=== PATIENT | male | born 1980 ===

== ENCOUNTER 2018-10-21 07:08 | Day surgery (SDC) | payer MEDICAID ==
[2018-10-13 09:25] VITALS: BMI 32.2
[~2018-10-21 07:08] MED LIST: EPINEPHrine 1:1000 Nasal Sol(30mL) ONE; Lidocaine/Epinephrine 1% 1:100000 10 ML IJ ONE; ceFAZolin IV 1 gm in Dextrose 2 GM/100 ML BAG IVPB ONE
[2018-10-21] MEDS ORDERED: Acetaminophen-Codeine 300/30 mg Tab PO PRN (09:19)
[2018-10-21] MEDS ORDERED: Dextrose 5%/0.45% NS 1,000 ML IV SCH (09:30)
[2018-10-21] MEDS ORDERED: Rocuronium 10 mg/ml (5 ml) ONE (09:38)
[2018-10-21] MEDS ORDERED: Succinylcholine Chloride 20 mg/ml Syr (5 ml) IV ONE (09:38)
[2018-10-21] MEDS ORDERED: Propofol 10 mg/ml Inj (20 ML) ONE ×4 (09:38→11:06)
[2018-10-21] MEDS ORDERED: Labetalol 25mg/5ml Syringe ONE (10:41)
[2018-10-21] MEDS ORDERED: Naloxone 0.4 mg/ml Inj (Adult) ONE (10:56)
[2018-10-21] MEDS ORDERED: HYDROmorphone 0.5 mg/0.5 ml ISec IVP PRN (11:30)
[2018-10-21] MEDS ORDERED: Dexamethasone 4 mg/1 ml IVP PRN (11:37)
[2018-10-21] MEDS ORDERED: HYDROmorphone 0.5 mg/0.5 ml ISec ONE (11:41)
[2018-10-21 12:57] VITALS: BP 118/70; PULSE 78; RESP 18; TEMP 98; O2SAT 100
--- NOTE | 2018-10-21 17:39 | OP ---
PROCEDURE DATE: 10/21/2018 PREOPERATIVE DIAGNOSES: Deviated septum, large turbinates. POSTOPERATIVE DIAGNOSES: Deviated septum, large turbinates. PROCEDURES: Septoplasty, endoscopic bilateral inferior turbinate reduction. SIGNIFICANT FINDINGS: Deviated septum, large turbinates. DESCRIPTION OF PROCEDURE: The patient was brought into room, placed in supine position. Anesthesia was initiated through an ET tube. The patient was draped in usual manner. Adrenaline-soaked pledgets were inserted into nasal cavity that remained there for five minutes and removed. The septum was injected with lidocaine with epinephrine on both sides. incision was made on the left and mucoperichondrial flap was raised. A vertical incision was made in the cartilage leaving a 1.5 cm anterior and superior strut and mucoperichondrial flap was raised on the other side. Deviated portion of the bone and cartilage were removed using forceps and chisel. Quilting suture was used to suture the two flaps together and close the [place] incision. The 0-degree scope was inserted into nasal cavity. The inferior turbinates were noted to be enlarged and reduced in size going from inferior to superior, anterior to posterior direction on both sides, first on the left and on the right. Bleeding was controlled using suction cautery. Splints were placed. The patient was taken off anesthesia and taken to recovery room in stable manner. Pelon Levy MD
== END 2018-10-21 13:17 | disposition home or self-care (01) ==
LOC: C.SDS 07:08
PROVIDERS: ATTEND Otolaryngology
DX: J34.2 Deviated nasal septum (principal); J34.3 Hypertrophy of nasal turbinates
CPT/HCPCS: 30130; 30520; 88304; J0690; J1170; J2001; J2310; J2704; J2765; J3010